=== PATIENT | female | born 1975 | race Caucasian/White ===

== ENCOUNTER → 2017-03-30 | Outpatient (CLI) | payer BC ==
[~2017-03-30] MED LIST: DIPH25CA5 PO; IBUP-1050 PO; LEVOIUD; LSN/10125 PO; MULTTAB58 PO; OXYC-57 PO; TAMS0.4C38 PO
--- NOTE | 2017-03-30 15:00 | DIAGNOSTIC IMAGING REPORT ---
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 No significant paravertebral calcifications. Intrauterine device is present. Nonobstructive bowel pattern. IMPRESSION: Negative study Electronically signed by: Devante Miller M.D. 03/30/2017 2:59 PM Dictated Date/Time: 03/30/2017 2:58 PM
== END | disposition home or self-care (01) ==
LOC: C.RAD 14:24
PROVIDERS: ATTEND Urology
DX: N13.30 Unspecified hydronephrosis (principal)

== ENCOUNTER → 2017-08-04 | Outpatient (CLI) | payer BC ==
[~2017-08-04] MED LIST changes: +BND25 PO; -DIPH25CA5 PO; -OXYC-57 PO
--- NOTE | 2017-08-04 14:13 | DIAGNOSTIC IMAGING REPORT ---
CHEST 2 VIEWS ROUTINE HISTORY: COUGH COMPARISON: Chest 09/28/2016. FINDINGS: The lungs are clear. Cardiac silhouette is normal in size. No pleural effusions. No pneumothorax. IMPRESSION: No acute process. Electronically signed by: Mac Dimas M.D. 08/04/2017 2:12 PM Dictated Date/Time: 08/04/2017 2:11 PM
== END | disposition home or self-care (01) ==
LOC: C.RAD 13:17
PROVIDERS: ATTEND Family Medicine
DX: R05 Cough (principal)